=== PATIENT | male | born 1980 | race Caucasian/White ===

== ENCOUNTER 2023-10-04 07:00 | Outpatient (NON) | payer OTHER, SELFPAY | END 2023-10-04 07:01 | disposition home or self-care (01) | PROVIDERS: PCP Physician Assistant; Visit Provider Internal Medicine Gastroenterology | DX: Z12.11 Encounter for screening for malignant neoplasm of colon (principal); Z80.0 Family history of malignant neoplasm of digestive organs | CPT/HCPCS: 88305 ==

== ENCOUNTER 2023-10-04 09:58 | Day surgery (SDC) | payer OTHER, SELFPAY ==
[2023-09-25 13:31] VITALS: BMI 35.1
--- NOTE | 2023-10-03 17:05 | P.PNAN_ITS ---
Anes - Initial Pre Proc Eval Procedure: Operation Date: 10/04/23 13:00 Proposed Procedures p Colonoscopy - Alexander Mullen MD Date/Time: 10/03/23 17:05 Surgeon: Alexander Mullen MD Pre Op Diagnosis: Family HX Malignant Neoplasm of Digestive Organs Patient Data Age: 43 Gender: M Height: 1.78 m Weight: 111 kg Allergies Allergy/AdvReac Type Severity Reaction Status Date / Time No Known Allergies Allergy Mild Verified 10/04/23 11:50 Home Medications Medication Instructions Recorded Confirmed Type No Home Medications 09/25/23 10/04/23 History Patient hx anesthesia problems: none Family hx anesthesia problems: none Results Review: All pre-operative results and documents have been reviewed as part of the pre- operative evaluation. [facility] Family History Family History (Updated 05/26/16 @ 23:21 by DOCTOR UNKNOWN) Mother Patient's mother is in good health, Onset Age: 54 Father Patient's father is in good health, Onset Age: 56 Grandparent Family history of lung cancer Social History Social History Smoking status: Never smoker Alcohol intake: current Alcohol use details: 2x week Substance use: never Substance use type: does not use Living arrangements: with family Spiritual care concerns: No Anes - Eval Final PreProcedure Day of Procedure 10/03/23 17:05 Patient weight: obese Heart: regular rate and rhythm Lungs: clear to auscultation Airway: Mallampati scale class II Neurological: alert and oriented Last oral intake: >/= 8 hours ASA classification: II Emergent: no Anesthetic plan: proceed Anesthesia type and monitoring: general GIVS and standard monitoring Results Review: All pre-operative results and documents have been reviewed as part of the pre- operative evaluation. Informed Consent: The patient's anesthetic plan and its attendant risks and benefits were discussed with the patient/family/POA. Questions were solicited and answers provided to the satisfaction of the patient/family/POA.
[2023-10-04 11:53] VITALS: BP 137/106; PULSE 82; RESP 18; TEMP 36.7; O2SAT 97; BMI 34.9
[2023-10-04] MEDS: LACTATED RINGERS 1,000 ML 150 ML IV CONT (12:07)
--- NOTE | 2023-10-04 12:29 | PM.HPGS ---
History of Present Illness History of Present Illness Consent: Risks, benefits, and alternatives have been discussed and questions answered. Patient agrees to proceed with procedure. Chief complaint: Family HX Malignant Neoplasm of Digestive Organs Narrative: Janusz Farfan is a 43 year old male here for first colonoscopy, father had colon cancer Review of Systems Constitutional: Constitutional: Denies headache(s) and Denies weakness Eyes: Eyes: Denies blurry vision ENT: Reports Normal hearing present, Denies headache(s) and Denies neck pain Cardiovascular: Cardiovascular: Denies chest pain and Denies dyspnea Respiratory: Respiratory: Denies dyspnea Gastrointestinal: Gastrointestinal: Reports no additional gastrointestinal complaints Genitourinary: Genitourinary: Denies dysuria Musculoskeletal: Musculoskeletal: Denies neck pain Integumentary/Breasts: Skin/Breast: Denies dry skin Neurologic: Reports Normal hearing present, Denies headache(s) and Denies weakness Psychiatric: Psychiatric: Denies anxiety Endocrine: Endocrine: Denies change in body appearance Hematologic/Lymphatic: Hematologic/Lymphatic: Denies easy bleeding Allergic/Immunologic: Allergic/Immunologic: Denies urticaria PMFSH Past Medical History Medical History (Updated 10/04/23 @ 12:29 by Alexander Mullen MD) Family history of colon cancer in father Family History Family History (Updated 05/26/16 @ 23:21 by DOCTOR UNKNOWN) Mother Patient's mother is in good health, Onset Age: 54 Father Patient's father is in good health, Onset Age: 56 Grandparent Family history of lung cancer Social History Social History Smoking status: Never smoker Alcohol intake: current Alcohol use details: 2x week Substance use: never Substance use type: does not use Living arrangements: with family Spiritual care concerns: No Meds Home Medications and Allergies Home Medications Medication Instructions Recorded Confirmed Type No Home Medications 09/25/23 10/04/23 History Allergies Allergy/AdvReac Type Severity Reaction Status Date / Time No Known Allergies Allergy Mild Verified 10/04/23 11:50 Vital Signs Vital Signs - 24 hr 10/04/23 11:53 Temperature 98.0 F Pulse Rate 82 Respiratory Rate 18 Blood Pressure 137/106 H Pulse Oximetry 97 Oxygen Delivery Room Air Exam Const: General: comfortable and no acute distress HENMT: Face/Nose/Sinus: Normal nares present Eyes: General: appearance normal, both eyes and all related structures Neck: Neck: no JVD Resp: Auscultation: clear to auscultation bilaterally Cardio: Rate: regular rate Rhythm: regular rhythm GI: Inspection: non-distended GI Palp: Yes Soft to palpation Skin: General skin exam: normal color Neuro: General: gait normal Speech: normal speech Extrem: General: normal to inspection Psych: Mental Status: mental status grossly normal Assessment and Plan Assessment and plan (1) Family history of colon cancer in father: Code(s): Z80.0 - Family history of malignant neoplasm of digestive organs Status: Acute Assessment and Plan: colonoscopy
[2023-10-04 12:54] VITALS: BP 108/55; PULSE 88; RESP 16; O2SAT 96
--- NOTE | 2023-10-04 12:59 | WPDANESPN ---
Anes - Prog Note Post-Op Date/Time: 10/04/23 12:59 Cardiovascular status: normal Respiratory status: normal Airway patency: baseline Mental status: baseline Post-Op hydration status: normal Vital Signs: Last Vital Signs Temp 36.7 C 10/04/23 11:53 Pulse 82 10/04/23 11:53 Resp 18 10/04/23 11:53 BP 137/106 H 10/04/23 11:53 Pulse Ox 97 10/04/23 11:53 O2 Del Method Room Air 10/04/23 11:53 Pain Score (VAS): 0 I/O: Intake & Output 10/03/23 10/04/23 10/04/23 23:59 07:59 15:59 Intake Total 400 Balance 400 Post-procedural complaints: none Patient Feedback: Patient satisfied with anesthetic care. Other Findings: Patient vital signs back to baseline. Patient denies nausea and vomiting. Patient's pain under control. Patient OK for discharge.
[2023-10-04 13:04] VITALS: BP 105/64; PULSE 67; RESP 16; O2SAT 98
[2023-10-04 13:14] VITALS: BP 118/82; PULSE 66; RESP 16; O2SAT 99
== END 2023-10-04 13:33 | disposition home or self-care (01) ==
PROVIDERS: PCP Physician Assistant; Visit Provider Internal Medicine Gastroenterology
PROC: 0DJD8ZZ Inspection of Lower Intestinal Tract, Via Natural or Artificial Opening Endoscopic (ICD-10-PCS; CPT 45378; principal; 2023-10-04 13:00)
DX: Z80.0 Family history of malignant neoplasm of digestive organs (principal); K63.5 Polyp of colon; K64.8 Other hemorrhoids
CPT/HCPCS: 45385